=== PATIENT | female | born 1990 | race American Indian/Alaskan Native ===

== ENCOUNTER 2017-09-30 11:35 | Emergency (ER) | payer MEDICAID ==
[2017-09-30 11:48] VITALS: BP 99/66
--- NOTE | 2017-09-30 13:42 | Emergency Department Report ---
HPI - General Chief Complaint: Allergic Reaction Time Seen by Provider: 09/30/17 13:26 - HPI HPI: Patient is a 27-year-old female at [facility] weeks's station followed by [facility] regularly presents to ED complaining noticed in rash on her hands and leaves for the past 3 days patient states rash is itching and is only localized to her palms. Patient states she does not recall eating anything different or using new products. She denies fevers/chills/nausea vomiting difficulty swallowing or throat pain ED Past Medical Hx - Past Medical History Previous Medical History?: No - Surgical History Past Surgical History?: No - Social History Smoking Status: Never Smoker Substance Use Type: Non Opiate Pain, Prescribed - Medications Home Medications: Home Medications Medication Instructions Recorded Confirmed Last Taken Type Hydrocortisone/Aloe Vera 1 applic TP TID #1 tube 09/30/17 Unknown Rx [Cortizone-10 1% Creme] predniSONE [Deltasone] 10 mg PO QDAY #5 tab 09/30/17 Unknown Rx ED Review of Systems ROS: Stated complaint: ALLERGIC REACTION Other details as noted in HPI Constitutional: denies: chills, fever Eyes: denies: eye pain, eye discharge, vision change ENT: denies: ear pain, throat pain Respiratory: denies: cough, shortness of breath, wheezing Cardiovascular: denies: chest pain, palpitations Endocrine: no symptoms reported Gastrointestinal: denies: abdominal pain, nausea, diarrhea Genitourinary: denies: urgency, dysuria, discharge Musculoskeletal: denies: back pain, joint swelling, arthralgia Skin: rash (palms), pruritus. denies: lesions, change in color Neurological: denies: headache, weakness, paresthesias Psychiatric: denies: anxiety, depression Hematological/Lymphatic: denies: easy bleeding, easy bruising Physical Exam - Physical Exam Vital Signs: Vital Signs 09/30/17 11:45 Temperature 98.5 F Pulse Rate 89 Respiratory 16 Rate Blood Pressure 99/66 O2 Sat by Pulse 99 Oximetry Physical Exam: GENERAL: Alert and oriented x3, no apparent distress, Normal Gait, atraumatic. HEAD: Head is normocephalic and a-traumatic. MOUTH:Mouth is well hydrated and without lesions. Tonsils nonerythematous or swollen, Uvula midline, Tongue not elevated. Mucous membranes are moist. Posterior pharynx clear, no exudate or lesions. Patent airways. NECK: Supple. Non edematous, No carotid bruits. No lymphadenopathy or thyromegaly. No C-spine tenderness LUNGS: Symetrical with respiration, No wheezing, no rales or crackles, CTAB. HEART: S1, S2 present, regular rate and rhythm without murmur, no rubs, no gallops. Non tender to palpation ABDOMEN: No organomegaly was noted,Positive bowel sounds, soft, and non- distended. Nontender to palpation on all Quadrants, SKIN: Warm and dry, maculopapular, mildly erythematous generalized rash on palms. No other lesions or rash on abdomen, neck, trunk, No ulceration or induration present. ED Course Vital Signs 09/30/17 11:45 Temperature 98.5 F Pulse Rate 89 Respiratory 16 Rate Blood Pressure 99/66 O2 Sat by Pulse 99 Oximetry ED Medical Decision Making - Medical Decision Making 27-year-old female presents with rash on her palms I discussed with patient to continue taking Benadryl for itching, I discussed with patient to make note that she comes into contact with. I discussed the patient has sometimes a rashes are normal. 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 Rashes not generalized to anywhere else and is only localized to her palms. This could've been due to something patient ingested or she came in contact with. I discussed this with the patient. I discussed the patient she will be going him on a short course of steroid dose and can and to see Benadryl for itching as well as a topical corticosteroid Critical care attestation.: If time is entered above; I have spent that time in minutes in the direct care of this critically ill patient, excluding procedure time. ED Disposition Clinical Impression: Rash and nonspecific skin eruption, Allergic dermatitis Disposition: -01 TO HOME OR SELFCARE Is pt being admited?: No Does the pt Need Aspirin: No Condition: Stable Instructions: Contact Dermatitis (ED), Acute Rash (ED), Viral Exanthem (ED) Additional Instructions: Make sure to follow up with the [facility] [facility] as discussed. Take all your medications as you've been prescribed. If you have any worsening symptoms or develop new symptoms please return to ED immediately. Prescriptions: Hydrocortisone/Aloe Vera [Cortizone-10 1% Creme] 1 applic TP TID #1 tube predniSONE [Deltasone] 10 mg PO QDAY #5 tab Referrals: PRIMARY CAREMD [Primary Care Provider] - 3-5 Days MIKE MCGRATH MD [Staff Physician] - 3-5 Days Forms: Accompanied Note, Work/School Release Form(ED) Time of Disposition: 14:04
[2017-09-30] MEDS ORDERED: DELTASONE PO ONE (14:07)
== END 2017-09-30 14:10 | disposition home or self-care (01) ==
LOC: ED 11:35
DX: O99.712 Diseases of the skin and subcutaneous tissue complicating pregnancy, second trimester (principal); L23.9 Allergic contact dermatitis, unspecified cause; Z3A.18 18 weeks gestation of pregnancy
CPT/HCPCS: 99282; J7512